=== PATIENT | male | born 1990 ===

== ENCOUNTER 2021-09-11 14:38 | Emergency (ER) | payer MEDICAID, OTHER ==
[~2021-09-11] VITALS: Ht 167.6 cm; Wt 83.9 kg
[2021-09-11] MEDS ORDERED: MORPHINE SULFATE INJECTION 2 MG/ML SYRG IM ONE (17:15)
[2021-09-11] MEDS ORDERED: ONDANSETRON ODT 4 MG TAB PO ONE (17:15)
[2021-09-11 17:24] VITALS: BP 137/88
[2021-09-11] MEDS ORDERED: IBUP800T27 PO (17:34)
[2021-09-11] MEDS ORDERED: CYCL-837 PO (17:34)
== END 2021-09-11 18:08 | disposition home or self-care (01) ==
LOC: ER 14:38
DX: S39.012A Strain of muscle, fascia and tendon of lower back, initial encounter (principal); X58.XXXA Exposure to other specified factors, initial encounter; Y93.89 Activity, other specified; Y92.89 Other specified places as the place of occurrence of the external cause; Y99.8 Other external cause status
CPT/HCPCS: 96372; 99283; J2270; Q0162